=== PATIENT | male | born 1990 | race Caucasian/White ===

== ENCOUNTER 2022-12-07 18:23 | Emergency (ER) | payer OTHER, SELFPAY ==
--- NOTE | 2022-12-07 18:28 | ED.SKABFB ---
HPI - Skin/Abscess/Foreign Bdy General Chief complaint: Skin/Abscess/Foreign Body Stated complaint: Rash Time Seen by Provider: 12/07/22 18:34 Source: patient, RN notes reviewed and old records reviewed Mode of arrival: ambulatory Limitations: no limitations History of Present Illness HPI narrative: 32-year-old male presents to the [facility] with complaints of a painful rash to the right back that started a week ago, small area to the right abdomen appeared 3 days ago. Has been applying Neosporin. Denies itching states it has been very painful Had chickenpox as a child Onset (ago): week(s) (1) Related Data Home Medications Medication Instructions Recorded Confirmed duloxetine 60 mg capsule,delayed 60 mg PO DIRECTED 12/07/22 12/07/22 release Allergies Allergy/AdvReac Type Severity Reaction Status Date / Time No Known Allergies Allergy Verified 12/07/22 18:33 Review of Systems Review of Systems: All systems reviewed & are unremarkable except as noted in HPI and below Constitutional: Constitutional: Reports no additional constitutional complaints Eyes: Eyes: Reports no additional eye complaints ENT: Reports system reviewed and no additional complaints, except as documented Cardiovascular: Cardiovascular: Reports no additional cardiovascular complaints, Denies chest pain and Denies dyspnea Respiratory: Respiratory: Reports no additional respiratory complaints, Denies chest congestion, Denies cough and Denies dyspnea Gastrointestinal: Gastrointestinal: Reports no additional gastrointestinal complaints, Denies abdominal pain, Denies nausea and Denies vomiting Musculoskeletal: Musculoskeletal: Reports no additional musculoskeletal complaints Integumentary/Breasts: Skin/Breast: Reports as per HPI and Reports rash Neurologic: Reports system reviewed and no additional complaints, except as documented Psychiatric: Psychiatric: Reports no additional psychiatric complaints Allergic/Immunologic: Allergic/Immunologic: Reports no additional allergic/immunologic complaints PMFSH Comments At the time of my signature, I reviewed and agree with the nursing past medical, surgical, social, and family history. There is no relevant family history pertinent to the patient complaint. Exam Const: General: cooperative, healthy appearing, comfortable, no acute distress, well developed, alert and well nourished Nutritional Appearance: well nourished Orientation/consciousness: patient oriented x3 Limitations: no limitations HENMT: Head: normal to inspection Ears: hearing grossly normal bilaterally and external ears normal Face/Nose/Sinus: Normal external nose present, Normal nares present, Normal nasal mucous membranes and turbinates present and normal facial exam Face and sinus: normal facial exam Eyes: General: appearance normal, both eyes and all related structures Alignment and Position: alignment normal Periorbital: periorbital findings normal Pupils: Equal, round and reactive pupils present EOM: EOMs intact bilaterally Neck: Neck: normal visual inspection, full ROM, no lymphadenopathy and no meningeal signs Chest: Chest palpation & inspection: normal inspection of the chest Resp: Effort & Inspection: normal respiratory effort and able to speak in complete sentences Auscultation: clear to auscultation bilaterally, no crackles, no rales, no rhonchi and no wheezes Cardio: Rate: regular rate Rhythm: regular rhythm Back/Spine/Pelvis: Cervical Spine: cervical ROM normal Thoracic/Lumbar Spine: No thoracic spinal tenderness Skin: General skin exam: normal color and no rashes or lesions noted Lesions: no lesions Rashes: rashes noted Wounds: no wounds Other: scabbed over rash patient states were vesicles a week ago to the right midback does not cross midline. New vesicular lesions just below breast right. Along same dermatome, no cellulitic changes. Neuro: General: patient oriented x3, gait normal, tone no
[2022-12-07 18:31] VITALS: BP 128/80; PULSE 82; RESP 16; TEMP 36.4; O2SAT 99
[2022-12-07 18:34] VITALS: BP 128/80; PULSE 82; RESP 16; TEMP 36.4; O2SAT 99
== END 2022-12-07 18:50 | disposition home or self-care (01) ==
PROVIDERS: Emergency Provider Nurse Practitioner; PCP Family Medicine
DX: B02.9 Zoster without complications (principal)
CPT/HCPCS: 99203; G0463

== ENCOUNTER 2023-05-12 18:18 | Emergency (ER) | payer OTHER, SELFPAY ==
[2023-05-12 18:23] VITALS: BP 135/83; PULSE 79; RESP 16; TEMP 36.6; O2SAT 98
--- NOTE | 2023-05-12 19:23 | ED.EYEPROB ---
HPI - Eye Problem General Chief complaint: Eye Problems Stated complaint: Eye Irritation/Swelling Source: patient Mode of arrival: ambulatory Limitations: no limitations History of Present Illness HPI Narrative: 32-year-old male presented for complaint of right upper eyelid irritation, itching with dryness for 2 months. He denies drainage from the eye or vision changes. He has used Vaseline and Aquaphor but reports it causes the eye to swell. Denies changes to any facial products. MD chief complaint: eye pain Related Data Home Medications Medication Instructions Recorded Confirmed duloxetine 60 mg capsule,delayed 60 mg PO DIRECTED 12/07/22 05/12/23 release sildenafil (pulm.hypertension) 20 20 mg PO PRN PRN Sexual Activity 05/12/23 05/12/23 mg tablet Allergies Allergy/AdvReac Type Severity Reaction Status Date / Time No Known Allergies Allergy Verified 05/12/23 18:29 Review of Systems Review of Systems: CONSTITUTIONAL: Denies body aches, fever, chills EYES:Endorses dryness and itching right eyelid denies redness, pain, FB sensation, photophobia, visual changes ENT: Denies rhinorrhea, congestion, sore throat, or otalgia. CARDIOVASCULAR: Denies chest pain, palpitations RESPIRATORY: Denies cough or dyspnea. GASTROINTESTINAL: Denies abdominal pain, nausea, vomiting, or diarrhea. SKIN: Denies rash, itching, or wounds. MUSCULOSKELETAL: Denies back pain, joint pain, or myalgia. NEUROLOGIC: Denies headache, numbness, tingling, or weakness. All systems reviewed & are unremarkable except as noted in HPI and below PMFSH Past Medical History Medical History (Updated 05/12/23 @ 20:01 by Suly Melendez, WINNIE) No pertinent past medical history Comments At time of signature, I have reviewed and agree with nursing past medical, surgical, social and family history unless otherwise noted. Please see nursing chart for further information. There is no relevant family history pertinent to the presenting complaint Exam Narrative: GENERAL: Well-appearing HEAD: Normocephalic, atraumatic. EYES: right upper eye lid dryness flaky skin; no swelling/redness or conjunctival injection, EOMI. Lid eversion shows no FB. ENT: Mucous membranes pink and moist. No rhinorrhea. TMs normal bilaterally. Throat normal. Uvula midline. CHEST: Clear to auscultation. HEART: Regular rate and rhythm. ABDOMEN: Soft, nontender, nondistended SKIN: Warm, dry, no rash. Normal skin turgor. NEURO: No focal deficits. Alert and oriented x3 PSYCH: Normal affect. Course Course Emergency Course: Patient is aware of diagnosis, understands and agrees to treatment plan. Anticipatory guidance given. Patient agrees to follow-up as directed and is aware of reasons to seek care at the emergency department. Portions of this record may have been created with voice recognition software Level of Care: Express Care Visit Vital Signs Vital signs: Vital Signs Temperature 97.8 F 05/12/23 18:23 Pulse Rate 79 05/12/23 18:23 Respiratory Rate 16 05/12/23 18:23 Blood Pressure 135/83 05/12/23 18:23 Pulse Oximetry 98 05/12/23 18:23 Temperature 97.8 F 05/12/23 18:23 Pulse Rate 79 05/12/23 18:23 Respiratory Rate 16 05/12/23 18:23 Blood Pressure 135/83 05/12/23 18:23 Pulse Oximetry 98 05/12/23 18:23 Oxygen Delivery Room Air 05/12/23 18:25 MDM - Eye Problem MDM Narrative Medical decision making narrative: Discussed physical exam findings. Advised supportive measures and signs/symptoms to go to the ER. Pt is appropriate for outpt treatment and f/u. Differential Diagnosis Differential diagnosis: Likely corneal abrasion, conjunctivitis, acute iritis, periorbital cellulitis and other Discharge Plan Discharge Clinical Impression: Dermatitis of eyelid Patient Disposition: Home, Self-Care Condition: Stable Instructions: Antibiotic Form, Eczema (ED) Additional Instructions: Use cr
== END 2023-05-12 19:35 | disposition home or self-care (01) ==
PROVIDERS: Emergency Provider Nurse Practitioner Family; PCP Family Medicine
DX: L30.9 Dermatitis, unspecified (principal)
CPT/HCPCS: 99213; G0463